=== PATIENT | male | born 1945 | race Caucasian/White ===

== ENCOUNTER 2016-05-02 10:36 | Emergency (ER) | payer OTHER, BC ==
[2016-05-02 11:13] LABS: EOSINOPHIL (%) 5.5 % (0-5); EOSINOPHIL COUNT 0.3 K/uL (0-0.3); HEMATOCRIT 44.1 % (38.0-50.0); IMMATURE GRANULOCYTE (%) 0.2 % (0.0-0.7); INSTRUMENT ABS NEUTROPHIL CT 2.4 K/uL; LYMPHOCYTE COUNT 1.7 K/uL (1.0-2.8); MCH 28.8 PG (29.0-34.0); MEAN PLAT.VOLUME 9.8 uM^3 (9.0-12.4); MONOCYTE (%) 12.9 % (3-12); MONOCYTE COUNT 0.7 K/uL (0-0.8); NEUTROPHIL (%) 47.3 % (45-76); NEUTROPHIL COUNT 2.4 K/uL (1.8-6.4); PLATELET COUNT 225 K/uL (156-360); RBC DIS.WIDTH-CV 14.8 % (11.8-14.6); RBC DIS.WIDTH-SD 48.9 % (39-53); WHITE BLOOD COUNT 5.1 K/uL (4.1-10.2)
[2016-05-02 11:23] LABS: AMYLASE 121 IU/L (1-118); CHLORIDE 106 mEq/L (99-109); POTASSIUM 4.4 mEq/L (3.7-5.4); SODIUM 137 mEq/L (136-147)
[2016-05-02 11:25] LABS: GLUCOSE 254 mg/dL (70-99)
[2016-05-02 11:27] LABS: ANION GAP 11 MEQ/L (2-14)
[2016-05-02 11:28] LABS: SERUM ETHYL ALCOHOL < 10 mg/dL
[2016-05-02 11:29] LABS: GFR ESTIMATE (CALCULATED) > 59 mL/min/
[2016-05-02 11:30] LABS: UREA NITROGEN (BUN) 19 mg/dL (9-23)
[2016-05-02 11:32] LABS: LIPASE 115 U/L (1.0-51.0)
[2016-05-02 12:08] VITALS: BP 155/85
== END 2016-05-02 13:01 | disposition short-term general hospital (02) ==
LOC: EME → TRA 10:36
PROVIDERS: Physician Assistant
DX: S68.121A Partial traumatic metacarpophalangeal amputation of left index finger, initial encounter (principal); S68.123A Partial traumatic metacarpophalangeal amputation of left middle finger, initial encounter; S68.125A Partial traumatic metacarpophalangeal amputation of left ring finger, initial encounter; S68.022A Partial traumatic metacarpophalangeal amputation of left thumb, initial encounter; W31.89XA Contact with other specified machinery, initial encounter
CPT/HCPCS: 73130; 80048; 81003; 82150; 83690; 85025; 86850; 86900; 86901; 99281; 99285; G0480; J0690; J2270; J3010; J7050; S0020